=== PATIENT | female | born 1995 | race Caucasian/White ===

== ENCOUNTER 2020-06-13 08:43 | Emergency (ER) | payer MEDICAID, OTHER ==
[~2020-06-13] VITALS: Ht 167.6 cm; Wt 66.0 kg
--- NOTE | 2020-06-13 08:53 | NUR ---
CUSTODY OFFICER: EKG DONE IN TRIAGE.
[2020-06-13] MEDS ORDERED: DEXAMETHASONE 4 MG TABLET PO ONE (09:30)
[2020-06-13] MEDS ORDERED: ALBUTEROL HFA 90 MCG/SPRAY INH ONE (09:30)
[2020-06-13] MEDS ORDERED: DEXAMETHASONE 4 MG TABLET ONE (09:45)
--- NOTE | 2020-06-13 09:52 | NUR ---
"EVERY YEAR AROUND THIS TIME OF YEAR I GET STUFFED UP, MY LUNGS FEEL FULL, AND I COUGH UP YELLOW STUFF." STATES NEEDS TO GET BACK TO WORK. REPORTS SOB WITH ACTIVITY. STATES "CLAMMY AND COLD SWEATS" STARTING THURSDAY. SUBJECTIVE FEVERS AT HOME.
[2020-06-13 10:31] VITALS: BP 124/78
== END 2020-06-13 10:33 | disposition home or self-care (01) ==
LOC: ED 08:54
DX: B34.9 Viral infection, unspecified (principal); Z20.828 Contact with and (suspected) exposure to other viral communicable diseases; J20.9 Acute bronchitis, unspecified; J45.909 Unspecified asthma, uncomplicated; R05 Cough; R50.9 Fever, unspecified; R53.83 Other fatigue; Z77.22 Contact with and (suspected) exposure to environmental tobacco smoke (acute) (chronic)
CPT/HCPCS: 36415; 71045; 87635; 93005; 99285

== ENCOUNTER 2020-09-13 15:59 | Emergency (ER) | payer MEDICAID ==
[~2020-09-13] VITALS: Ht 167.6 cm; Wt 68.0 kg
--- NOTE | 2020-09-13 16:30 | NUR ---
ROXY RN: PT REPORTS SOB AND PALPITATIONS WITH ANXIETY. PT ALSO REPORTS SHE HAS HAD CHEST PAIN SINCE YESTERDAY THAT COMES AND GOES. 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 SINUS TACH NOTED. VS STABLE. CALL LIGHT IN PLACE. REPORT GIVEN TO NAVJOT LIANG.
[2020-09-13] MEDS ORDERED: LORazepam 1MG TABLET ONE (17:00)
[2020-09-13] MEDS ORDERED: LORazepam 1MG TABLET PO ONE (17:00)
--- NOTE | 2020-09-13 17:06 | NUR ---
first contact with patient - patient is a 25f complaining of cp, sob. she states she thinks she probably had a panick attack at work. she is resting comfortably with the site monitor, continuous spo2, and cycling vitals. She does not appear to be in distress. call light within reach. No additional needs verbalized at this time.
[2020-09-13 17:24] LABS: BASOPHILS % (AUTO) 1 % (0-1); EOSINOPHILS % (AUTO) 2 % (1-7); LYMPHOCYTES % (AUTO) 27 % (22-44); MD NO; MEAN CORPUSCULAR HEMOGLOBIN 32.4 pg (27.0-34.8); MEAN PLATELET VOLUME 7.8 fL (7.4-10.4); MONOCYTES % (AUTO) 9 % (2-9); NEUTROPHILS % (AUTO) 61 % (42-75); PLATELET COUNT 215 x10^3/uL (130-400); RED BLOOD COUNT 4.37 x10^6/uL (3.82-5.3); RED CELL DISTRIBUTION WIDTH 13.4 % (9.6-15.2)
[2020-09-13 17:35] LABS: ALANINE AMINOTRANSFERASE 22 U/L (12-78); ANION GAP 4 mmol/L (5-15); CALCIUM 9.4 mg/dL (8.5-10.1); CHLORIDE 110 mmol/L (98-107); CREATININE 0.65 mg/dL (0.55-1.02)
[2020-09-13 17:45] LABS: ALKALINE PHOSPHATASE 68 U/L (45-117); BILIRUBIN,TOTAL 0.3 mg/dL (0.2-1.0); TOTAL PROTEIN 7.3 g/dL (6.4-8.2)
--- NOTE | 2020-09-13 17:47 | NUR ---
patient states she feels a lot more relaxed not so anxious. She is resting comfortably in bed watching tv. call light within reach.
[2020-09-13 17:49] VITALS: BP 115/75
== END 2020-09-13 19:02 | disposition home or self-care (01) ==
LOC: ED 18:15
DX: F43.0 Acute stress reaction (principal); Z20.822 Contact with and (suspected) exposure to COVID-19; F41.1 Generalized anxiety disorder; R07.89 Other chest pain; R00.2 Palpitations; R06.00 Dyspnea, unspecified; R00.0 Tachycardia, unspecified; J45.909 Unspecified asthma, uncomplicated; F17.200 Nicotine dependence, unspecified, uncomplicated
CPT/HCPCS: 80053; 84443; 84703; 85025; 87635; 93005; 99284

== ENCOUNTER 2020-11-29 19:59 | Emergency (ER) | payer MEDICAID ==
[~2020-11-29] VITALS: Ht 167.6 cm; Wt 69.5 kg
--- NOTE | 2020-11-29 20:44 | NUR ---
cc of abd "behind belly button" 03/09 pain, along with tongue numbness, finger numbness, and bilat leg numbess, new onset today shortly after drinking some beers and shots. pt states she think she might be allergic to alcohol and doesnt drink often and this has never happened before. pt states she uses "heavy amount of marijuana daily".
[2020-11-29] MEDS ORDERED: SODIUM CHLORIDE 0.9% 1,000ML IVBOLUS ONE (21:00)
[2020-11-29] MEDS ORDERED: KETOROLAC 30 MG/1 ML IVPush ONE (21:00)
[2020-11-29] MEDS ORDERED: FAMOTIDINE 20 MG/2 ML IVPush ONE (21:00)
[2020-11-29] MEDS ORDERED: ONDANSETRON 2MG/ML, 2ML IVPush ONE (21:00)
[2020-11-29] MEDS ORDERED: SODIUM CHLORIDE FLUSH 10ML SYR IVF ONE (21:00)
[2020-11-29 21:09] LABS: BASOPHILS % (AUTO) 1 % (0-1); EOSINOPHILS % (AUTO) 1 % (1-7); LYMPHOCYTES % (AUTO) 14 % (22-44); MEAN CORPUSCULAR HEMOGLOBIN 32.4 pg (27.0-34.8); MEAN CORPUSCULAR HGB CONC 33.9 g/dL (32.4-35.8); MEAN PLATELET VOLUME 7.7 fL (7.4-10.4); MONOCYTES % (AUTO) 5 % (2-9); NEUTROPHILS % (AUTO) 79 % (42-75); PLATELET COUNT 244 x10^3/uL (130-400); RED BLOOD COUNT 4.15 x10^6/uL (3.82-5.3)
[2020-11-29] MEDS ORDERED: KETOROLAC 30 MG/1 ML ONE (21:09)
[2020-11-29] MEDS ORDERED: FAMOTIDINE 20 MG/2 ML ONE (21:09)
[2020-11-29] MEDS ORDERED: ONDANSETRON 2MG/ML, 2ML ONE (21:09)
[2020-11-29 21:10] LABS: MD NO
[2020-11-29 21:19] LABS: ALANINE AMINOTRANSFERASE 25 U/L (12-78); ANION GAP 6 mmol/L (5-15); CALCIUM 9.1 mg/dL (8.5-10.1); CHLORIDE 111 mmol/L (98-107); CREATININE 0.67 mg/dL (0.55-1.02)
[2020-11-29 21:24] LABS: ALKALINE PHOSPHATASE 63 U/L (45-117); BILIRUBIN,TOTAL 0.3 mg/dL (0.2-1.0); TOTAL PROTEIN 7.6 g/dL (6.4-8.2)
[2020-11-29] MEDS: MAALOX/HYOSCYAMINE/LIDOCAINE 45 ML BTL PO ONE ×2 (21:30→21:34)
--- NOTE | 2020-11-29 21:31 | NUR ---
BREAK RN: DR BRENNER IN ROOM UPDATING PATIENT. VS STABLE. CALL LIGHT IN PLACE. NO ACUTE DISTRESS NOTED. WILL CONTINUE TO MONITOR WHILE PRIMARY RN IS ON BREAK.
--- NOTE | 2020-11-29 21:51 | NUR ---
BREAK RN: BEDSIDE REPORT GIVEN TO NAVJOT MCGRAW
[2020-11-29 22:40] VITALS: BP 92/59
== END 2020-11-29 22:59 | disposition home or self-care (01) ==
LOC: ED 21:48
DX: K29.00 Acute gastritis without bleeding (principal); R10.84 Generalized abdominal pain; R11.2 Nausea with vomiting, unspecified; R19.7 Diarrhea, unspecified; F17.210 Nicotine dependence, cigarettes, uncomplicated
CPT/HCPCS: 36415; 80053; 83690; 84703; 85025; 96361; 96374; 96375; 99284; 99406; J1885; J2405; J7030